=== PATIENT | male | born 1970 | race Caucasian/White ===

== ENCOUNTER 2018-11-24 15:36 | Outpatient (CLI) | payer BC ==
--- NOTE | 2018-11-24 16:39 | ULT ---
VENOUS DOPPLER ULTRASOUND OF RIGHT LOWER EXTREMITY: Date: 11/24/18 HISTORY: Deep venous thrombosis. Patient on anticoagulants. TECHNIQUE: Bennett scale ultrasound with color flow and spectral Doppler imaging of the deep venous system of the r ight lower extremity performed. COMPARISON: 11/07/[address] [facility] [place]. FINDINGS: Interval resolution of the intraluminal thrombus in the distal right popliteal vein has occurred. The common femoral, femoral, deep femoral, posterior tibial, and greater saphenous veins are patent. The re is absence of compression with presence of flow in the peroneal vein consistent with nonocclusive thrombus. IMPRESSION: 1. New nonocclusive thrombosis in the right peroneal vein. 2. Interval resolution of right popliteal vein thrombosis since 11/07/17. POS: OFF
== END 2018-11-24 15:37 | disposition home or self-care (01) ==
LOC: BICULT 15:36
PROVIDERS: ATTEND Family Medicine
DX: I82.431 Acute embolism and thrombosis of right popliteal vein (principal); I82.890 Acute embolism and thrombosis of other specified veins

== ENCOUNTER 2019-04-01 15:52 | Outpatient (CLI) | payer BC ==
--- NOTE | 2019-04-01 16:32 | ULT ---
RIGHT LOWER EXTREMITY VENOUS DUPLEX EXAM: INDICATIONS: History of prior thrombus in the right peroneal vein and history of previous right DVT. CORRELATION: Prior exam from 11/24/2018 which showed thrombus in the right peroneal vein with resolution of the ri ght popliteal thrombus at that time. TECHNIQUE: Ultrasound Doppler study is performed on the veins of the right lower extremity. Color Doppler with s pectral analysis and compression study is performed. FINDINGS: The deep veins of the right lower extremity show normal blood flow and compression. No evidence of ri ght lower extremity venous thrombosis identified. The right peroneal vein shows normal flow today. IMPRESSION: Negative right lower extremity venous duplex examination. POS: OFF
== END 2019-04-01 15:53 | disposition home or self-care (01) ==
LOC: BICULT 15:52
PROVIDERS: ATTEND Internal Medicine Hematology & Oncology
DX: I82.90 Acute embolism and thrombosis of unspecified vein (principal); R60.0 Localized edema

== ENCOUNTER 2023-01-23 13:45 | Outpatient (CLI) | payer BC ==
[2023-01-23 15:12] LABS: #Eosinphils 0.2 10x3/uL (0.0-0.5); #Monocytes 0.4 10x3/uL (0.0-1.1); #Neutrophils 2.5 10x3/uL (1.5-8.4); %Basophils 0.6 % (0.0-2.0); %Eosinophils 3.2 % (0.0-6.0); %Lymphocytes 38.5 % (18.0-47.0); %Monocytes 7.4 % (0.0-10.0); %Neutrophils 50.1 % (40.0-75.0); Hemoglobin 16.3 g/dL (13.5-17.5); Mean Corpuscular HGB CONC 34.7 g/dL (32.0-36.0); Mean Corpuscular Hemoglobin 30.8 pg (27.0-33.0); Mean Corpuscular Volume 88.7 fl (81.2-95.1); Mean Platelet Volume 10.5 fl (7.4-10.4); Platelet Count 193 10x3/uL (150-450); RBC Distribution Width 12.2 % (11.5-14.5)
[2023-01-23 15:31] LABS: Anion Gap 16 mmol/L (10-20); BUN (Urea Nitrogen) 14 mg/dL (8.4-25.7); Calc. Creatinine Clearance 0 mL/min (70-130); Calcium 9.7 mg/dL (7.8-10.44); Carbon Dioxide 23 mmol/L (22-29); Chloride 107 mmol/L (98-107); Estimated GFR 99; Glucose 111 mg/dL (70-105); Potassium 4.2 mmol/L (3.5-5.1); Sodium 142 mmol/L (136-145)
[2023-01-23 15:32] LABS: PTT 26.6 sec (22.0-33.0); Prothrombin Time 10.7 sec (9.5-12.1)
== END 2023-01-23 13:46 | disposition home or self-care (01) ==
LOC: LABBT 13:45
PROVIDERS: ATTEND Specialist
DX: Z01.818 Encounter for other preprocedural examination (principal); K42.9 Umbilical hernia without obstruction or gangrene
CPT/HCPCS: 80048; 85025; 85610; 85730; 93005; 93010

== ENCOUNTER 2023-01-31 06:15 | Day surgery (SDC) | payer BC ==
[2023-01-23 14:31] VITALS: BMI 82.8
[2023-01-31] MEDS ORDERED: Ketorolac Tromethamine 30 MG/ML VIAL ONE (06:35)
[2023-01-31] MEDS ORDERED: Acetaminophen 500 MG TAB ONE (06:35)
[2023-01-31] MEDS ORDERED: CEFAZOLIN 2 GM VIAL ONE ×2 (06:35→08:15)
[2023-01-31] MEDS ORDERED: Sodium Chloride 0.9% 0 ML ONE (06:35)
[2023-01-31] MEDS ORDERED: Bupivacaine 0.25% HCL 30 ML VIAL ONE (08:08)
[2023-01-31] MEDS ORDERED: EPINEPHrine 1 MG/ML AMP ONE (08:08)
[2023-01-31] MEDS ORDERED: Sodium Chloride 0.9% 100 ML ONE (08:15)
[2023-01-31] MEDS ORDERED: Midazolam HCl 2 mg/2 ml Vial ONE (08:22)
[2023-01-31] MEDS ORDERED: fentaNYL 50 mcg/mL 1 mL Vial ONE (08:22)
[2023-01-31] MEDS ORDERED: Lidocaine 1% PF 5 ML VIAL ONE (08:29)
[2023-01-31] MEDS ORDERED: Ondansetron PF 4 MG/2 ML Vial ONE (08:29)
[2023-01-31] MEDS ORDERED: PROPOFOL 200 MG/20 ML VIAL ONE (08:29)
== END 2023-01-31 11:10 | disposition home or self-care (01) ==
LOC: SDC 06:15
PROVIDERS: ATTEND Specialist
PROC: 0WUF0JZ Supplement Abdominal Wall with Synthetic Substitute, Open Approach (ICD-10-PCS; principal; 2023-01-31)
DX: K42.9 Umbilical hernia without obstruction or gangrene (principal); E78.5 Hyperlipidemia, unspecified; Z88.1 Allergy status to other antibiotic agents; Z79.899 Other long term (current) drug therapy
CPT/HCPCS: C1889; J0171; J1885; J2250; J2405; J2704; J3010; J3490; S0020